=== PATIENT | female | born 1980 | race Caucasian/White ===

== ENCOUNTER 2018-09-24 17:40 | Emergency (ER) | payer OTHER ==
[~2018-09-24] VITALS: Ht 170.1 cm; Wt 64.4 kg
[2018-09-24] MEDS ORDERED: ROBAXIN-750750 MG PO (18:10)
[2018-09-24] MEDS ORDERED: ZOFRAN4 MG PO (18:10)
== END 2018-09-24 18:11 | disposition home or self-care (01) ==
LOC: ED 17:40
DX: F11.20 Opioid dependence, uncomplicated (principal)